=== PATIENT | male | born 1975 | race Hispanic/Latino ===

== ENCOUNTER 2018-05-14 16:00 | Outpatient (CLI) | payer BC ==
[2018-05-14 16:41] LABS: Hemoglobin 14.4 g/dL (14.0-18.0); Mean Corpuscular HGB CONC 33.8 g/dL (32.0-36.0); Mean Corpuscular Volume 94.9 fl (80.0-94.0); Mean Platelet Volume 6.8 fL (7.4-10.4); Platelet Count 297 thou/uL (130-400); RBC Distribution Width 12.5 % (11.5-14.5); Red Blood Cell (RBC) Count 4.49 mill/uL (4.70-6.10); White Blood Cell (WBC) Count 8.8 thou/uL (4.8-10.8)
[2018-05-14 16:47] LABS: PTT 34.7 SEC (22.9-36.1); Prothrombin Time 12.7 SEC (12.0-14.7)
[2018-05-14 16:48] LABS: Anion Gap 13 mmol/L (10-20); BUN (Urea Nitrogen) 18 mg/dL (8.9-20.6); Calc. Creatinine Clearance 0 mL/min (70-130); Carbon Dioxide 25 mmol/L (22-29); Chloride 105 mmol/L (98-107); Estimated GFR-MDRD 80; Glucose 137 mg/dL (70-105); Potassium 3.9 mmol/L (3.5-5.1); Sodium 139 mmol/L (136-145)
--- NOTE | 2018-05-15 12:23 | EKG ---
Test Reason : Blood Pressure : / mmHG Vent. Rate : 072 BPM Atrial Rate : 072 BPM P-R Int : 132 ms QRS Dur : 090 ms QT Int : 362 ms P-R-T Axes : 027 025 -14 degrees QTc Int : 396 ms Normal sinus rhythm Cannot rule out Anterior infarct , age undetermined (doubtful) T wave abnormality, consider inferior ischemia Abnormal ECG No previous ECGs available Confirmed by CHERYL GUERRA ([id number]) on 05/15/2018 12:22:49 PM Referred By: WILMER Confirmed By:CHERYL GUERRA
== END 2018-05-14 16:01 | disposition home or self-care (01) ==
LOC: LABBT 16:00
PROVIDERS: ATTEND Orthopaedic Surgery
DX: Z01.818 Encounter for other preprocedural examination (principal); M54.16 Radiculopathy, lumbar region; M48.061 Spinal stenosis, lumbar region without neurogenic claudication
CPT/HCPCS: 80048; 85027; 85610; 85730; 93005; 93010

== ENCOUNTER 2018-05-20 10:30 | Day surgery (SDC) | payer BC ==
[2018-05-20] MEDS ORDERED: CEFAZOLIN/Water 2 GM/20 ML SYRINGE ONE (13:39)
[2018-05-20] MEDS ORDERED: Sodium Chloride 0.9% 10 ML ONE (14:25)
[2018-05-20] MEDS ORDERED: Bacitracin Zinc Ointment 30 gm TUBE ONE (14:25)
[2018-05-20] MEDS ORDERED: Thrombin 5000 UNITS/5 ML VIAL ONE (14:25)
[2018-05-20] MEDS ORDERED: Fentanyl 100 MCG/2 ML VIAL ONE ×3 (14:27→18:22)
[2018-05-20] MEDS ORDERED: Milk Of Magnesia 30 ML UDCUP PO PRN (17:30)
[2018-05-20] MEDS ORDERED: Fleet Enema 133 ML BOT PR PRN (17:30)
[2018-05-20] MEDS ORDERED: Acetaminophen/Codeine 30-300mg Tablet PO PRN (17:30)
[2018-05-20] MEDS ORDERED: Mag-Al 1200 mg/1200 mg/30 ML UDCUP PO PRN (17:30)
[2018-05-20] MEDS ORDERED: Promethazine HCl 25 MG/ML VIAL IM PRN ×2 (17:30→17:36)
[2018-05-20] MEDS ORDERED: tiZANidine HCl 4 MG TAB PO PRN (17:30)
[2018-05-20] MEDS ORDERED: traMADol HCl 50 MG TAB PO PRN (17:30)
[2018-05-20] MEDS ORDERED: Acetaminophen 325 MG TAB PO PRN (17:30)
[2018-05-20] MEDS ORDERED: Bisacodyl 10 MG SUPP PR PRN (17:30)
[2018-05-20] MEDS ORDERED: HYDROmorphone 2 MG/ML VIAL SLOW IVP PRN (17:36)
[2018-05-20] MEDS ORDERED: Promethazine HCl 25 MG/ML VIAL SLOW IVP PRN (17:36)
[2018-05-20] MEDS ORDERED: Ondansetron HCl/PF 4 MG/2 ML Vial IVP PRN (17:36)
[2018-05-20] MEDS: HYDROcodone/Acetaminophen 7.5/325 mg Tablet PO PRN (19:48)
[2018-05-20] MEDS: Sodium Chloride 0.9% 1,000 ML IV SCH (20:45)
[2018-05-20] MEDS ORDERED: Rosuvastatin 10 MG TAB PO SCH (21:00)
[2018-05-20] MEDS ORDERED: metFORMIN XR 500 MG TAB PO SCH (21:00)
[2018-05-20] MEDS: CEFAZOLIN/Water 2 GM/20 ML SYRINGE SLOW IVP SCH (22:42)
[2018-05-21 01:33] VITALS: BMI 37.9
[2018-05-21] MEDS ORDERED: Levothyroxine Sodium 25 MCG TAB PO SCH (06:00)
[2018-05-21] MEDS: CEFAZOLIN/Water 2 GM/20 ML SYRINGE SLOW IVP SCH (06:29)
[2018-05-21] MEDS: HYDROcodone/Acetaminophen 7.5/325 mg Tablet PO PRN (07:14)
[2018-05-21] MEDS: Sodium Chloride 0.9% 1,000 ML IV SCH (07:20)
[2018-05-21 08:03] VITALS: BP 113/71; TEMP 98.1
[2018-05-21] MEDS ORDERED: Dapagliflozin/Metformin Hcl [Xigduo Xr 5 Mg-1,000 Mg Tablet] PO SCH (09:00)
--- NOTE | 2018-05-21 09:11 | PRG ---
DATE OF SERVICE: 05/21/2018 Mr. James is postoperative day 1 from L3-L5 decompressive laminectomy, partial facetectomy, and fora minotomies over the L3, L4, L5 nerve roots. He is doing very well this morning with resolution in hi s leg pain. As expected, he has postoperative pain in the surgical site, but otherwise is doing very well. He is already mobilizing and voiding on his own. His neurological exam has remained at basel ine and intact. We will plan for dismissal.
--- NOTE | 2018-05-21 09:14 | OP ---
DATE OF SURGERY: 05/20/2018 OR: OR #11 WOUND TYPE: Type 1 wound. SURGEON: Francisco Marie M.D. VP SALES: Ayad Luo PA-C. PREPROCEDURE DIAGNOSES: Lumbar stenosis with low back and leg pain. POSTPROCEDURE DIAGNOSES: Lumbar stenosis with low back and leg pain. PROCEDURE: L3-L4, L4-L5 laminectomies, partial facetectomies and foraminotomies over the L3, L4, L5 nerve roots. DESCRIPTION OF PROCEDURE: After informed consent was obtained from the patient, the patient brought to OR 11. Proper patient pause and identification was carried out. He was placed under excellent ge neral endotracheal anesthesia and positioned prone on the OR table. All appropriate points were padd ed. We identified the L3, L4, L5 dorsal spines and this region was sterilely cleansed, prepared, and draped. Proper patient pause and identification was carried out. A linear brianda was made over the L 3, L4, L5 dorsal spines and again sterile cleansing, preparation and draping occurred. The wound was then opened with a combination of sharp, monopolar and blunt dissection. The L3, L4, L5 dorsal spin es lamina were exposed. Localization film confirmed our area of interest. We then performed L3, L4, L5 laminectomies, partial facetectomies and foraminotomies over the L3, L4, L5 nerve root with excel lent decompression of the common dural tube and the nerve roots. There was no spinal fluid leak. He mostasis was maximized throughout. The wound was then copiously irrigated and closed in anatomic lay ers following meticulous hemostasis and the sprinkling of vancomycin powder. The patient then emerge d from anesthesia.
== END 2018-05-21 10:10 | disposition home or self-care (01) ==
LOC: SDC 10:30 → SURG A 17:30 → SDC 05-21 10:10
PROVIDERS: ATTEND Surgery
PROC: 01NB0ZZ Release Lumbar Nerve, Open Approach (ICD-10-PCS; principal; 2018-05-20)
DX: M48.061 Spinal stenosis, lumbar region without neurogenic claudication (principal); E11.9 Type 2 diabetes mellitus without complications; E03.9 Hypothyroidism, unspecified; E66.9 Obesity, unspecified; Z68.37 Body mass index [BMI] 37.0-37.9, adult; Z87.891 Personal history of nicotine dependence; Z85.831 Personal history of malignant neoplasm of soft tissue; Z79.84 Long term (current) use of oral hypoglycemic drugs; Z79.899 Other long term (current) drug therapy
CPT/HCPCS: 36416; 76001; 93005; 93010; 96374; A4216; J3010; J3370; J3490